=== PATIENT | female | born 1965 | race Caucasian/White ===

== ENCOUNTER 2019-08-11 14:45 | Emergency (ER) | payer OTHER, SELFPAY ==
[2019-08-11 14:49] VITALS: BP 135/115; PULSE 91; RESP 17; TEMP 36.1; O2SAT 98; BMI 23.6
--- NOTE | 2019-08-11 15:15 | ED.RN ---
Radha from [facility] was called to due drug screen, family member answered the phone and said she was unavailable and dealing with a family emergency. Charge nurse made aware, [facility]
--- NOTE | 2019-08-11 15:18 | CT_ITS ---
STUDY: CT BRAIN WITHOUT CONTRAST REASON FOR EXAM: Female, 54 years old. TRAUMA, HIT TOP OF HEAD, LAC TO TOP OF HEAD, +LOC RADIATION DOSAGE (If Supplied By Facility): CTDIvol = ( 44.99 ) mGy, DLP = ( 812.98 ) mGycm TECHNIQUE: Transaxial CT imaging of the brain was performed without administration of intravenous contrast material. Individualized dose optimization techniques were used for this CT. COMPARISON: No relevant priors. FINDINGS: Normal soft tissue structures. Normal calvarium. Normal size ventricles and extra-axial spaces for the patient''s age. Normal white matter tracts of the cerebral hemispheres. Normal basal ganglia and thalami. Normal brainstem. Normal cerebellum. There is no intracranial hemorrhage. There are no findings of an acute ischemic infarction. Normal visualized paranasal sinuses. CT/Brain/Head without Contrast IMPRESSION: 1. No acute intracranial hemorrhage or mass effect. Electronically Signed: Hany Ricardo MD (Brooks) at 16:00 EST , Service support ,
--- NOTE | 2019-08-11 15:19 | ED.VISSUMM ---
- ER Visit Summary Date of Service: 08/11/19 Chief Complaint: Head trauma History of Present Illness: The patient is a 54 F who presents with a head trauma that occurred today. Patient states she bent forward and hit her head on a metal bar. Patient states she felt dazed but did not actually lose consciousness. 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 Patient states her vision currently is a little darker than usual but denies any spots or floaters. Patient admits to a headache. Patient admits to nausea but denies any vomiting. Patient is unsure of her last tetanus. Patient denies any paresthesias or weakness. Physical Examination: Vital signs are stable. Patient is afebrile. Patient is in no acute distress. Oral mucosa is pink and moist. Neck is supple. Trachea is midline. There is no JVD. Pupils are equal, round, and reactive to light bilaterally. Extraocular muscles are intact. Cranial nerves II through XII are intact. Strength is 5/5 bilaterally upper and lower extremities. There are no sensory deficits noted. Patient ambulated without difficulty. Skin is warm and dry. There is a 2 cm full-thickness linear laceration in the frontal scalp area. There is no active bleeding noted. There is no bony crepitance or step-off. Test Results: CT scan of the brain was obtained. There is no acute intracranial abnormality. This is interpreted by the radiologist and reviewed by myself. Emergency Department Course and Treatment: The wound was cleaned and irrigated with copious amounts of normal saline. The wound was anesthetized with 1% lidocaine with epinephrine locally. The wound was closed with 3 joe under sterile technique. Patient tolerated the procedure well. Patient was instructed to keep the wound clean and dry. Patient was instructed to follow-up with her primary care physician in 5 days for wound recheck and staple removal. Patient was also advised that she may follow-up with corporate care. Patient understood and was agreeable with the plan. All questions were answered. Disposition: Discharge home Impression: 1. Scalp laceration 2. Closed head injury This note was generated with [employer] software. It may contain incorrect words, spelling, and punctuation that were not noted in review of the chart prior to signing ED Disposition - Plan for ED Patient: Disposition: Home or Assisted Living Diagnosis: Scalp laceration, Concussion Instructions: HEAD INJURY, No Wake-Up (Adult), LACERATION, Scalp Referrals: Viet Mathias MD [Primary Care Provider] - 5 Days for suture removal Corporate,[facility] [GROUP OF PHYSICIANS] - 5 Days for suture removal
[2019-08-11] MEDS: Diphth,Pertuss(Acell),Tet Vac 0.5 ML Vial IM (15:39)
[2019-08-11] MEDS: Acetaminophen 500 MG Tablet 1000 MG PO (17:24)
[2019-08-11 18:04] VITALS: BP 128/89; PULSE 60; RESP 15
== END 2019-08-11 18:06 | disposition home or self-care (01) ==
PROVIDERS: Emergency Provider Emergency Medicine; PCP Family Medicine
DX: S01.01XA Laceration without foreign body of scalp, initial encounter (principal); S06.0X0A Concussion without loss of consciousness, initial encounter
CPT/HCPCS: 12001; 70450; 90471; 90715; 99283

== ENCOUNTER 2021-03-04 21:31 | Emergency (ER) | payer OTHER, SELFPAY ==
[2021-03-04 21:32] VITALS: BP 141/88; PULSE 82; RESP 15; TEMP 36.4; O2SAT 99; BMI 24.7
--- NOTE | 2021-03-04 21:48 | ED.VIS.LOWEX ---
HPI History of Present Illness Chief Complaint: Lower Extremity Injury Informant: patient Occured/Mechanism Mechanism/Context: Yes injury and Yes blunt trauma Onset/Context/Timing Onset: Today and Hours Context: Sudden Onset Timing: Continuous Quality of Pain: Sharp Current Severity: Mild Maximum Severity: Mild Narrative Narrative: 55-year-old female no significant past medical history. At work today a large heavy metal rack struck her on the medial posterior left ankle. This occurred around 5 PM. She is complaining of pain and swelling. No prior history of surgery to the ankle. Denies other complaints. This is going to be a workers comp injury. Prior similar symptoms: No Recent Illness/Hospitalization: No PFSH PFSH no medical history Home Medications NK 08/11/19 [History Last Taken Unknown] Allergy/AdvReac Type Severity Reaction Status Date / Time egg Allergy Nausea/Vom/ Verified 03/04/21 21:31 Diarrhea Penicillins Allergy Anaphylaxis Verified 03/04/21 21:31 Social History Smoking Status: Current every day smoker tobacco type: cigarettes ROS ROS ED ROS Narrative No recent illness. Review of Systems ROS Unobtainable: Denies due to encephalopathy Constitutional Constitutional ED: Denies chills or fever(s) Eyes Eyes: Denies change in vision ENT ENT ED: Reports rhinorrhea; Denies ear pain or sore throat Cardiovascular Cardiovascular: Denies chest pain Respiratory/Chest Respiratory/Chest: Denies cough or dyspnea Gastrointestinal Gastrointestinal: Denies abdominal pain, diarrhea, nausea or vomiting Genitourinary Genitourinary ED: Denies dysuria or hematuria Musculoskeletal Musculoskeletal: Denies myalgias Integumentary Denies rash Neurologic Neurologic: Denies headache(s) Psychiatric Psychiatric: Denies depression Endocrine Endocrinology: Denies polyuria Hematologic/Lymphatic Hematologic/Lymphatic: Denies easy bruising Allergic/Immunologic Allergic/Immunologic ED: Denies urticaria EXAM Physical Exam Narrative Exam Narrative: White female no acute distress. HEENT exam unremarkable neck nontender. Lungs clear. Heart regular rhythm. Chest were nontender. Abdomen soft nontender. Pelvic girdle intact. Both upper extremity unremarkable with only of motion. Left hip and knee are unremarkable tenderness on the medial aspect of pressure to her ankle. Mild swelling. Denies tenderness or tiredness dorsi plantar flexion intact. No bony deformity. Normal DP pulse. Toes. Tenderness on the medial ankle. Right lower extremity unremarkable neurologic exam normal. Const Vital Signs: 03/04/21 21:32 Temperature 97.6 F L Temperature Source Temporal Pulse Rate 82 Respiratory Rate 15 Blood Pressure 141/88 H Blood Pressure Mean 105 Pulse Ox 99 Oxygen Delivery Method Room Air Positive well nourished and well developed; Negative for contractures or unkempt General Appearance ED: well developed and NAD; Negative for unkempt or contractures HEENT Reports moist mucous membranes normocephalic and atraumatic Eyes PERRL Neck full ROM and supple Thyroid: Negative for tender Chest Wall inspection of chest normal and palpation of chest normal Resp normal respiratory effort, no retractions and clear to auscultation bilaterally Auscultation: Negative for rales, rhonchi or wheezes Cardio regular rate, regular rhythm, S1 normal heart sound, S2 normal heart sound and no murmurs GI non-tender, non-distended and no masses Auscultation: normoactive bowel sounds Palpation: soft; Negative for tender, guarding or rebound tenderness present Back/Spine no CVA tenderness General Back: Negative for CVA tenderness Cervical Spine: Negative for cervical spine tenderness Thoracic Spine / Upper Back: Negative for thoracic spinal tenderness Lumbar Spine / Lower Back: Negative for lumbar spinal tenderness Extremity full ROM Extremity Narrative: Mild tenderness swelling left medial ankle. Achilles tendon intact. Able to wiggle her toes. Normal DP pulse. Skin intact. General Extremety ED: Yes edema; Negative for cyanosis General Extremity: edema; Negative for cyanosis Neuro oriented x3 and moves all extremities Sensorium / Orientation: alert, oriented to person, oriented to place and oriented to time; Negative for orientation impaired, confused, lethargic or stuporous Motor Exam: strength 5/5 throughout Psych mental status grossly normal Appearance: Negative for unkempt Skin Lesions: no lesions Rashes: no rashes MDM MDM MDM Narrative Medical decision making narrative: Patient with a left ankle injury at work. Workers comp. X-ray being obtained. Motrin for pain. Repeat exam doing well at 10:15 PM. We went over x-ray. She cannot use crutches and do her job so run try a walking boot. Radiography Diagnostic Testing: Left ankle x-ray 3 views interpreted by myself shows soft tissue swelling. No acute fracture or dislocation. Discharge Plan Triage Chief Complaint: Lower Extremity Injury ED Provider: Gil Childers Dx/Rx/DC Orders Clinical Impression: Contusion of left lower extremity Instructions: ED Contusion, Lower Extremity Prescriptions: No Action NK RF: 0 Primary Care Provider: Viet Mathias Referrals: [facility] [GROUP OF PHYSICIANS] - 1 Week if not improving Viet Mathias MD [Primary Care Provider] - Activity Restrictions/Additional Instructions: Ice and elevate it at least 5 times a day 20 to 30 minutes each time to decrease pain and swelling for the next 3 days. Motrin for pain and swelling. Tylenol for pain. Increase activity as tolerated. Follow-up with [facility] care to ensure its improving. Disposition Disposition: Home, Self Care
--- NOTE | 2021-03-04 21:54 | RAD_ITS ---
STUDY: X-RAY - LEFT ANKLE REASON FOR EXAM: Female, 55 years old. pt states hit left heel with a cart, pain and swelling to left ankle TECHNIQUE: 3 view(s) of the ankle. COMPARISON: None. FINDINGS: Normal visualized distal tibia and fibula. Normal medial and lateral malleoli. Normal tibiotalar articulation and ankle mortise. Normal visualized talus and calcaneus. The visualized subtalar, talonavicular, calcaneocuboid and tarsal articulations are normal. There is no demonstrated fracture. The soft tissue structures are unremarkable. RAD/Ankle min 3 Views IMPRESSION: Normal x-ray examination of the ankle. Electronically Signed: Brian Chen MD at 22:56 EDT , Service support ,
[2021-03-04] MEDS: Ibuprofen 600 MG Tablet PO (21:55)
[2021-03-04 22:44] VITALS: PULSE 74; RESP 16; O2SAT 98
== END 2021-03-04 22:44 | disposition home or self-care (01) ==
LOC: ED 21:55
PROVIDERS: Emergency Provider Emergency Medicine; PCP Family Medicine
DX: S80.12XA Contusion of left lower leg, initial encounter (principal); F17.210 Nicotine dependence, cigarettes, uncomplicated; W22.8XXA Striking against or struck by other objects, initial encounter
CPT/HCPCS: 73610; 99283

== ENCOUNTER → 2023-04-13 | Outpatient (CLI) | payer OTHER, SELFPAY ==
--- NOTE | 2023-04-13 07:49 | CT_ITS ---
STUDY: CT ABDOMEN AND PELVIS WITH CONTRAST REASON FOR EXAM: Female, 58 years old. LOWER ABD PAIN RADIATION DOSAGE (If Supplied By Facility): CTDIvol = ( 9.84 ) mGy, DLP = ( 498.52 ) mGycm TECHNIQUE: Transaxial images were obtained from the dome of the diaphragm to the symphysis pubis with oral contrast. Oral and amp; IV Readi-CAT and amp; 100mL Isovue-300 was administered. Sagittal and coronal images were reconstructed. Individualized dose optimization techniques were used for this CT. COMPARISON: None. FINDINGS: The visualized lung bases are unremarkable. The visualized portions of the heart are within normal limits. Normal liver. Normal gallbladder and extrahepatic biliary system. Normal spleen. Normal pancreas. Normal bilateral adrenal glands. Normal right kidney. Normal left kidney. Normal visualized stomach. Normal small intestine. Retained stool noted throughout the colon. The appendix is visualized and appears normal. Appendix seen on coronal recon images 41 through 52 Normal abdominal aorta. Normal inferior vena cava. Normal retroperitoneum. Normal urinary bladder. There is absence of the uterus consistent with a prior hysterectomy. Normal abdominal wall. Normal osseous structures. CT/Abdomen/Pelvis WITH Contrast IMPRESSION: No suspicious solid organ abnormality No free intraperitoneal fluid, air, or suspicious adenopathy. Normal appendix visualized No suspicious osseous lesion. Electronically Signed: Sky Arambula MD at 10:46 EDT ,
== END | disposition home or self-care (01) ==
LOC: CT 07:47
PROVIDERS: PCP Family Medicine; Referring Provider Family Medicine; Visit Provider Family Medicine
DX: R10.30 Lower abdominal pain, unspecified (principal)
CPT/HCPCS: 74177; Q9967

== ENCOUNTER 2024-08-04 02:36 | Emergency (ER) | payer BC, SELFPAY ==
[2024-08-04 02:37] VITALS: BP 145/96; PULSE 83; RESP 17; TEMP 36.6; O2SAT 98; BMI 22.0
[2024-08-04 02:42] VITALS: BP 145/96; PULSE 76; RESP 16; TEMP 36.6; O2SAT 97
[2024-08-04 03:35] LABS: Color, Urine Straw (Yellow); Glucose, Dipstick Normal (Normal); Ketone-Dipstick Negative (Negative); Leukocyte Esterase-Dipstick Negative /ul (Negative); Nitrite-Dipstick Negative (Negative); Occult Blood-Urine 10 /ul (Negative); Protein-Dipstick 15 mg/dl (Negative); Specific Gravity, Urine 1.025 (1.002-1.030); Urine Bilirubin Dipstick Negative (Negative); Urine Clarity Clear (Clear); Urine Urobilinogen Normal (Normal)
[2024-08-04 03:37] LABS: Internal QC Validated? YES +Cl - CLEAR BKGD; Pregnancy, Urine Negative Negative
[2024-08-04 03:42] VITALS: BP 144/95; PULSE 74; RESP 19; TEMP 36.6; O2SAT 98
[2024-08-04 03:51] LABS: Bacteria 2+ /hpf (None Seen); Mucous, Urine 1+ /hpf (<or=2+); Red Blood Cells-Urine 10-25 SEEN /hpf (0-5); Squamous Epithelial Cells - UA 10-25 SEEN /hpf (5-10); White Blood Cells 0-5 SEEN /hpf (0-5)
--- NOTE | 2024-08-04 04:01 | EDS_ITS ---
HPI History of Present Illness Chief Complaint: Complaint Informant: patient Narrative Narrative: Patient is a 59-year-old female with past medical history of osteoarthritis and osteoporosis. She states almost 2 weeks ago she noticed she was having slight burning with urination and therefore began drinking a large amount of cranberry juice in order to flush her system. She states she fell like she was having improvement of symptoms but then in the last few days has noticed urinary frequency urgency and dysuria. She states she has burning with urination and at rest and has the sensation that she is unable to empty her bladder. With concern she is developing a UTI she presents for evaluation [facility] Medical History (Updated 08/04/24 @ 06:[address] Haja Johnson, DO) Age related osteoporosis Chronic neck and back pain Arthritis Home Medications ?Medication ?Instructions ?Recorded ?Last Taken ?Type ergocalciferol (vitamin D2) PO 08/04/24 Unknown Histor y phenazopyridine 200 mg tablet 200 mg PO TID PRN pain 3 days #9 08/04/24 Unknown Rx (Pyridium) tabs sulfamethoxazole 800 1 tab PO BID 7 days #14 tabs 08/04/24 Unknown Rx mg-trimethoprim 160 mg tablet (Bactrim DS) Allergy/AdvReac Type Severity Reaction Status Date / Time egg Allergy Nausea/Vom/ Verified 08/04/24 02:37 Diarrhea Penicillins Allergy Anaphylaxis Verified 08/04/24 02:37 Surgical History (Updated 03/09/21 @ 13:07 by Mónica Rodgers) History of hysterectomy History of eye surgery Social History (Updated 03/09/21 @ 13:07 by Mónica Rodgers) Smoking Status: Current every day smoker tobacco type: cigarettes alcohol intake: current alcohol intake frequency: a few times a month ROS ROS ED Constitutional Constitutional ED: Denies chills or fever(s) ENT ENT ED: Denies sore throat Cardiovascular Cardiovascular: Denies chest pain Respiratory/Chest Respiratory/Chest: Denies cough or dyspnea Gastrointestinal Gastrointestinal: Reports abdominal pain; Denies diarrhea, nausea or vomiting Genitourinary Genitourinary ED: Reports dysuria and urinary frequency Musculoskeletal Musculoskeletal: Denies back pain Integumentary Denies rash Neurologic Neurologic: Denies headache(s) Hematologic/Lymphatic Hematologic/Lymphatic: Denies easy bleeding or easy bruising EXAM Physical Exam Const Vital Signs: 08/04/24 02:37 08/04/24 02:42 08/04/24 03:42 Temperature 98 F 98 F 98 F Temperature Source Oral Oral Oral Pulse Rate 83 76 74 Respiratory Rate 17 16 19 H Blood Pressure 145/96 H 145/96 H 144/95 H Blood Pressure Mean 112 112 111 Pulse Ox 98 97 98 Oxygen Delivery Method Room Air Room Air Room Air 08/04/24 04:37 Temperature 98 F Temperature Source Pulse Rate 74 Respiratory Rate 19 H Blood Pressure 142/90 H Blood Pressure Mean 107 Pulse Ox 98 Oxygen Delivery Method Positive well nourished and well developed General Appearance ED: well developed; Negative for pallor HEENT HEENT Narrative: Normocephalic atraumatic Eyes PERRL and EOMs intact bilaterally General Eye ED: Negative for scleral icterus Neck supple Resp normal respiratory effort and clear to auscultation bilaterally Cardio regular rate and regular rhythm Rate: other Other Details: Radial and carotid pulses are equal and symmetric GI non-distended and no masses GI Narrative: Abdomen is soft and nondistended with normal active bowel sounds There is pain on palpation in the suprapubic region. No voluntary guarding or rigidity. No organomegaly to suggest acute urinary retention Negative heel strike psoas and obturator signs. Auscultation: normoactive bowel sounds Palpation: soft Back/Spine no CVA tenderness Extremity normal to inspection Neuro oriented x3, CN's II-XII intact bilaterally and no sensory deficits noted Sensorium / Orientation: alert Motor Exam: strength 5/5 throughout Psych mental status grossly normal Skin no rashes or lesions noted and no wounds General Skin Exam: Negative for jaundice or pallor MDM MDM MDM Narrative Medical decision making narrative: Patient presented to the ER mildly hypertensive but overall is stable vitals. She reported urinary frequency with dysuria and sensation of incomplete emptying. Differential diagnosis is for UTI versus pyelonephritis versus kidney stone versus acute urinary retention. By exam she does not have a distended bladder/organomegaly to suggest retention. She does not have CVA pain going against kidney stone or pyelonephritis. Urine sample showed +2 bacteria with 10-25 red cells as well as contamination with 10-25 epithelial cells. Her history is concerning for true bacterial infection and therefore the renal be sent for culture and she will be started on antibiotics. I discussed a potential CT scan with the blood in the urine checking for kidney stone but her exam does not correlate with this and patient does not want a scan as she feels it is more infectious in nature. As she is afebrile with normal heart rate and actually hypertension not hypotension the concern for developing systemic infection such as urosepsis is low and there is no need for further workup at this time. Patient will be started on antibiotics and is otherwise safe for discharge History & Record Review Discussion w/independent historian: Patient Lab Data Attestation: I reviewed the patient's lab results. Labs: Laboratory Results - last 24 hr 08/04/24 03:25 Urine Color Straw Urine Clarity Clear Urine pH 5.0 Ur Specific [place] 1.025 Urine Protein 15 H Urine Glucose (UA) Normal Urine Ketones Negative Urine Occult Blood 10 H Urine Nitrite Negative Urine Bilirubin Negative Urine Urobilinogen Normal Ur Leukocyte Esterase Negative Urine RBC 10-25 SEEN Urine WBC 0-5 SEEN Ur Squamous Epith Cells 10-25 SEEN Urine Bacteria 2+ Urine Mucus 1+ Urine Test Negative Discharge Plan Triage Chief Complaint: Complaint ED Provider: Haja Johnson Dx/Rx/DC Orders Clinical Impression: UTI (urinary tract infection), Osteoarthritis, Osteoporosis Instructions: Urinary Tract Infections in Women Prescriptions: New sulfamethoxazole-trimethoprim [Bactrim DS] 800-160 mg tablet 1 tab PO BID 7 Days Qty: 14 0RF phenazopyridine [Pyridium] 200 mg tablet 200 mg PO TID PRN (Reason: pain) 3 Days Qty: 9 0RF No Action ergocalciferol (vitamin D2) PO Primary Care Provider: Care Physician,No Primary Referrals: Laurel Tobias MD [Med Staff - Active Staff] - Care Physician,No Primary [Primary Care Provider] - Activity Restrictions/Additional Instructions: Your exam and urine sample are consistent with urinary tract infection. Take the prescribed medications as directed to help resolve the infection. He will typically take 48 to 72 hours for the antibiotics to take effect. Return to the ER should you have any further concerns. Print Language: Cambodian Disposition Disposition: Home, Self Care Discharge Date/Time: 08/04/24 04:38
[2024-08-04] MEDS: Phenazopyridine 95 MG Tablet 190 MG PO (04:30)
[2024-08-04] MEDS: Ceftriaxone 1 GM Vial IM (04:31)
[2024-08-04 04:37] VITALS: BP 142/90; PULSE 74; RESP 19; TEMP 36.6; O2SAT 98
== END 2024-08-04 04:38 | disposition home or self-care (01) ==
PROVIDERS: Emergency Provider Emergency Medicine; Visit Provider Emergency Medicine
DX: N39.0 Urinary tract infection, site not specified (principal); M81.0 Age-related osteoporosis without current pathological fracture; M19.90 Unspecified osteoarthritis, unspecified site; F17.210 Nicotine dependence, cigarettes, uncomplicated
CPT/HCPCS: 81001; 81025; 87086; 87088; 96372; 99282